=== PATIENT | female | born 1970 | race Caucasian/White ===

== ENCOUNTER 2020-03-14 01:20 | Emergency (ER) | payer BC, OTHER ==
[2020-03-14] MEDS ORDERED: ONDANSETRON 4 MG TAB.RAPDIS PO ONE (02:02)
--- NOTE | 2020-03-14 02:37 | RADIOLOGY REPORT (SQ) ---
Left shoulder x-ray three views on 03/14/2020 at 1:54 AM CLINICAL INDICATION: Left shoulder pain COMPARISON: None FINDINGS: The AC joint is well aligned. The glenohumeral joint is well located. There are no fractures. No bony abnormality is noted. IMPRESSION: No acute abnormality.
--- NOTE | 2020-03-14 03:30 | ER Document Report ---
ED Fall - General Chief Complaint: Shoulder Injury Stated Complaint: POSSIBLE LEFT SHOULDER INJURY Time Seen by Provider: 03/14/20 02:49 Primary Care Provider: FATIMAH LE JR, DO [ACTIVE PROVISIONAL STAFF] - Follow up as needed Mode of Arrival: Ambulatory Information source: Patient Notes: 50-year-old female presented to ED for complaint of left shoulder pain. She states she was walking in the kitchen and there was a wet floor she slipped fell landing on her shoulder. She states she did have an injury around Thanksgiving and they did an MRI and she had a labrum tear and multiple other problems with her shoulder. She states they did surgery they were supposed to clean the shoulder out and repaired labrum tear but found it elevated was manipulated shoulder as it did become a frozen shoulder. She states she had physical therapy and then fell today and said now her shoulder is as painful as it was before she had her surgery. She states she does not want to go back to the same [facility] as she went to before. Constitutional: Negative for fever. HENT: Negative for sore throat. Eyes: Negative for visual changes. Cardiovascular: Negative for chest pain. Respiratory: Negative for shortness of breath. Gastrointestinal: Negative for abdominal pain, vomiting or diarrhea. Genitourinary: Negative for dysuria. Musculoskeletal: Pain and swelling to the left shoulder. She states she fell on it when she slipped and fell in the house. She does have decreased range of motion to the shoulder and increasing pain. She states she has not regained her full range of motion since her last injury. Skin: Negative for rash. Neurological: Negative for headaches, weakness or numbness. 10 point ROS negative except as marked above and in HPI. CONSTITUTIONAL: No fever, fatigue or weight loss. SKIN: No rash. HENT: No congestion, ear pain, or sore throat. EYES: No recent vision problems or eye pain. ENDOCRINE: No thyroid problems. No polyuria or polydipsia. CARDIOVASCULAR: No chest pain or edema. RESPIRATORY: No cough, shortness of breath, congestion, or wheezing. GASTROINTESTINAL: No abdominal pain, nausea, vomiting, bloody stools or diarrhea. GENITOURINARY: No dysuria. MUSCULOSKELETAL: Pain swelling bruising to the left shoulder LYMPHATIC: No swollen glands. NEUROLOGIC: No seizures. No headache, focal weakness or sensory changes. HEMATOLOGIC: No unusual bruising or bleeding. PSYCHIATRIC: No depression or anxiety. TRAVEL OUTSIDE OF THE [place] IN LAST 30 DAYS: No - HPI Occurred: Yesterday Where: Home, Indoors Context: Slipped Associated symptoms: None Location of injury/pain: Shoulder - Left shoulder Quality of pain: Sharp, Throbbing Severity: Moderate Pain Level: 4 - Related data Allergies/Adverse Reactions: adhesive tape Allergy (Verified 11/04/15 11:09) Blisters prednisone Adverse Reaction (Severe, Verified 11/03/15 14:30) Vomiting Sulfa (Sulfonamide Antibiotics) Adverse Reaction (Severe, Verified 11/03/15 14:30) Vomiting Home Medications: topamax, premarin, fremfro, ibs med, vitamin C Past Medical History - General Information source: Patient - Social History Smoking Status: Former Smoker Frequency of alcohol use: Occasional Drug Abuse: None Occupation: [employer] Lives with: Family Family History: Reviewed & Not Pertinent Patient has suicidal ideation: No Patient has homicidal ideation: No - Past Medical History Cardiac Medical History: Reports: None, Hx Hypertension Pulmonary Medical History: Reports: None EENT Medical History: Reports: None Neurological Medical History: Reports: None Endocrine Medical History: Reports: None Renal/ Medical History: Reports: None Malignancy Medical History: Reports: None GI Medical History: Reports: Hx Hiatal Hernia, Hx Endoscopy, Other - Alanis's esophagitis hiatal hernia surgery Musculoskeletal Medical History: Reports Hx Arthritis - jaw,sciatica rt leg,worse than left, Reports Hx Musculoskeletal Deformity, Reports Hx Musculoskeletal Trauma Skin Medical History: Reports None Psychiatric Medical History: Reports: None Traumatic Medical History: Reports: Hx Fractures Infectious Medical History: Reports: None Past Surgical History: Reports: Hx Breast Surgery - Reduction, Hx C holecystectomy, Hx Gynecologic Surgery - Uterine ablation, Hx Orthopedic Surgery - Left shoulder surgery - Immunizations Hx Diphtheria, Pertussis, Tetanus Vaccination: Yes Physical Exam - Vital signs Vitals: Temp Pulse Resp BP Pulse Ox 97.9 F 71 20 153/92 H 100 03/14/20 01:26 03/14/20 01:26 03/14/20 01:26 03/14/20 01:26 03/14/20 01:26 Course - Vital Signs Vital signs: Temp Pulse Resp BP Pulse Ox 98.1 F 69 18 135/84 H 100 03/14/20 03:45 03/14/20 03:45 03/14/20 03:45 03/14/20 03:45 03/14/20 03:45 - Laboratory Results Critical Laboratory Results Reviewed: No Critical Results - Radiology Results Critical Radiology Results Reviewed: No Critical Results Discharge - Discharge Clinical Impression: Injury of left shoulder Qualifiers: Encounter type: initial encounter Qualified Code(s): S49.92XA - Unspecified injury of left shoulder and upper arm, initial encounter Fall Qualifiers: Encounter type: initial encounter Qualified Code(s): W19.XXXA - Unspecified fall, initial encounter Condition: Stable Disposition: HOME, SELF-CARE Additional Instructions: Shoulder Injury You have injured your shoulder. This usually results from stretching or tearing of the tendons during trauma. Time and protection are required in order to heal properly. Many injuries are quite disabling, and should be taken seriously. Initial treatment includes cold packs and a sling to rest the shoulder. The physician has assessed the seriousness of your injury, and has outlined a treatment plan. Understand that this treatment may change, depending on how you progress. If a re-examination was recommended, it is important that you follow up as instructed. Some shoulder injuries (such as partial tear of the rotator cuff) are only suspected after you've failed to improve. Call us if there's severe pain, numbness, or loss of function. Ice Packs Apply ice packs frequently against the painful area. Many different schedules are recommended, such as "20 minutes on, 20 minutes off" or "one hour ice, two hours rest." If you need to work, you may need to go longer between ice treatments. You should plan to have the area ice packed AT LEAST one fourth of the time. The ice should be applied over the wrap, tape, or splint, or over a layer of cloth -- not directly against the skin. Some ice bags have a built-in cloth and can be put directly on the skin. USE OF [id number] IBUPROFEN: Ibuprofen (Advil, Nuprin, Medipren, Motrin IB) is a medication for fever and pain control. In addition, it has anti- inflammatory effects which may be beneficial, especially in the treatment of injuries. It's best to take ibuprofen with food. Persons with ulcer disease or allergy to aspirin should notify their physician of this before taking ibuprofen. Ibuprofen can be given every four to six hours, for a total of four doses daily. Age Pain or fever dose Antiinflammatory dose 6-8 yr 200 mg (1 tab) 200 mg (1 tab) 9-11 yr 200 mg (1 tab) 200-400 mg (1-2 tab) 11-14 yr 200-400 mg (1-2 tab) 400 mg (2 tab) 15-adult 400 mg (2 tab) 600 mg (3 tab) ORAL NARCOTIC MEDICATION: You have been given a Algenetix dispense pack for pain control. This medication is a narcotic. It's best taken with food, as nausea can result if taken on an empty stomach. Don't operate machinery or drive within six hours of taking this medication. Do not combine this medicine with alcohol, or with any medication which can cause sedation (such as cold tablets or sleeping pills) unless you get permission from the physician. Narcotics tend to cause constipation. If possible, drink plenty of fluids and eat a diet high in fiber and fruits. Please be aware that prescription narcotics also have the potential for abuse. People become addicted to these medications because of the general sense of wellbeing that they induce. This feeling along with a significant reduction in tension, anxiety, and aggression provides a stimulating seductive quality to these drugs. Once your pain is under control, we encourage you to discard your unused narcotics. Exercise Program for the Shoulder Since the shoulder moves in so many directions, the joint attachment is weak. Muscles provide most of the stability to the shoulder. You must exercise your shoulder to prevent painful instability or stiffening. PASSIVE - These may be begun within a few days of the injury. While standing, lean forward, allowing the arm to hang down towards the floor. Move the arm in small circles while slowly twisting your chest towards and away from the hanging arm. Do this for one minute. ACTIVE - These may be performed when the doctor gives permission. Begin with the arms at the sides. Raise the arms forward (shoulder's width apart) until they reach shoulder level. Then slowly swing both arms back until they are aiming straight out away from each other. Then bring them forward again, and finally, lower them to your sides. Repeat 20 to 30 times. As you improve, put weights in your hands for the exercise. Start with one pound, and work up to 10 pounds. Never use more than is comfortable. Athletes may work up to 30 pounds. FOLLOW-UP CARE: If you have been referred to a physician for follow-up care, [facility] as you were instructed or within the next two days. If you experience worsening or a significant change in your symptoms, notify the physician immediately or return to the Emergency Department at any time for re-evaluation. Forms: Elevated Blood Pressure Referrals: FATIMAH LE JR, DO [ACTIVE PROVISIONAL STAFF] - Follow up as needed
[2020-03-14] MEDS ORDERED: HYDROCODONE/ACETAMINOPHEN 5-325 MG (6 TAB/ER DISP) PO PRN (03:33)
[2020-03-14 03:48] VITALS: BP 135/84
== END 2020-03-14 03:50 | disposition home or self-care (01) ==
LOC: ER 01:20
DX: S49.92XA Unspecified injury of left shoulder and upper arm, initial encounter (principal); W01.0XXA Fall on same level from slipping, tripping and stumbling without subsequent striking against object, initial encounter; Y92.000 Kitchen of unspecified non-institutional (private) residence as the place of occurrence of the external cause; I10 Essential (primary) hypertension; Z98.890 Other specified postprocedural states; Z79.899 Other long term (current) drug therapy; Z87.891 Personal history of nicotine dependence; Z91.048 Other nonmedicinal substance allergy status
CPT/HCPCS: 99284; 73030; S0119